=== PATIENT | female | born 1965 | race Caucasian/White ===

== ENCOUNTER → 2017-06-11 | Outpatient (REF) | LOC: ZLAB.WCH 18:00 | DX: Z01.89 Encounter for other specified special examinations (principal) ==

== ENCOUNTER → 2018-04-20 | Outpatient (REF) ==
[2018-04-20 17:10] LABS: THYROID STIMULATING HORMONE 1.19 uIU/mL (0.465-4.680)
== END ==
LOC: ZLAB.WCH 16:05
PROVIDERS: Nurse Practitioner Family
DX: Z01.89 Encounter for other specified special examinations (principal)